=== PATIENT | male | born 1960 | race Caucasian/White ===

== ENCOUNTER → 2017-10-23 | Outpatient (CLI) | payer OTHER ==
[~2017-10-23] MED LIST: CYCL-259 PO; FLUN25SP NAS; HYDR-3241 PO; HYOS0.1282 PO; NAPH15DR62 EACHEYE; VIT1TABL32 PO; [UNRECOGNIZED DRUG - OTHER] PO
[2017-10-23 12:44] LABS: BASOPHILS # (AUTO) 0.05 x10^3/uL (0-0.1); BASOPHILS % (AUTO) 1 % (0-1); MD NO; MONOCYTES # (AUTO) 0.51 x10^3/uL (0.2-0.8); MONOCYTES % (AUTO) 6 % (2-9); RED CELL DISTRIBUTION WIDTH 13.8 % (9.4-14.8)
[2017-10-23 12:50] LABS: EOSINOPHILS % (AUTO) 1 % (1-7); LYMPHOCYTES # (AUTO) 2.55 x10^3/uL (1-3.4); LYMPHOCYTES % (AUTO) 31 % (22-44); MEAN CORPUSCULAR HEMOGLOBIN 32.2 pg (27.5-34.5); MEAN CORPUSCULAR HGB CONC 33.9 g/dL (33.2-36.2); MEAN CORPUSCULAR VOLUME 94.9 fL (81-97); MEAN PLATELET VOLUME 7.8 fL (7.4-10.4); NEUTROPHILS # (AUTO) 5.12 x10^3/uL (1.8-6.8); NEUTROPHILS % (AUTO) 61 % (42-75); PLATELET COUNT 256 x10^3/uL (130-400); RED BLOOD COUNT 4.86 x10^6/uL (4.38-5.82)
[2017-10-23 12:51] LABS: INTERNATIONAL NORMALIZED RATIO 0.99 (0.93-1.1); PROTHROMBIN TIME 10.2 Seconds (9.6-11.5)
[2017-10-23 12:57] LABS: MICROSCOPIC AUTO
[2017-10-23 12:58] LABS: CULTURE INDICATED? YES
[2017-10-23 13:04] LABS: ANION GAP 8 mmol/L (5-15); CALCIUM 9.1 mg/dL (8.5-10.1); CHLORIDE 103 mmol/L (98-107)
[2017-10-23 13:05] LABS: CREATININE 1.08 mg/dL (0.7-1.3)
== END | disposition home or self-care (01) ==
LOC: STAR 11:30
PROVIDERS: ATTEND Neurological Surgery
DX: Z01.818 Encounter for other preprocedural examination (principal); M43.02 Spondylolysis, cervical region; M48.02 Spinal stenosis, cervical region; M54.12 Radiculopathy, cervical region
CPT/HCPCS: 36415; 71046; 80048; 81001; 85025; 85610; 85730; 87086; 93005